=== PATIENT | female | born 1970 | race Caucasian/White ===

== ENCOUNTER 2018-09-18 16:26 | Emergency (ER) | payer OTHER ==
[~2018-09-18] VITALS: Ht 160 cm; Wt 62.6 kg
[2018-09-18 16:28] VITALS: Ht 160 cm; Wt 62.6 kg
[2018-09-18 17:57] VITALS: BP 135/70
== END 2018-09-18 17:57 | disposition home or self-care (01) ==
LOC: ED 16:26
DX: H10.13 Acute atopic conjunctivitis, bilateral (principal)
CPT/HCPCS: J1885; J7512

== ENCOUNTER 2019-01-08 22:25 | Emergency (ER) | payer OTHER ==
[~2019-01-08] VITALS: Ht 160 cm; Wt 58.5 kg
[2019-01-08 22:50] VITALS: Ht 160 cm; Wt 58.5 kg
[2019-01-08 23:27] LABS: BASOPHIL % 0.7 % (0-2); PLATELET COUNT 231 x10^3mcL (130-400); RED CELL DISTRIBUTION WIDTH 13.5 % (11.5-14.5)
[2019-01-08 23:41] LABS: CALCIUM 9.7 mg/dL (8.5-10.1); CARBON DIOXIDE 27.1 mmol/L (21-32); CHLORIDE SERUM 106 mmol/L (98-107); CREATININE SERUM 0.7 mg/dL (0.6-1.0); GFR1 > 60 mL/min; GLUCOSE SERUM 92 mg/dL (74-106); POTASSIUM SERUM 3.9 mmol/L (3.5-5.1); SODIUM SERUM 145 mmol/L (136-145)
[2019-01-08 23:46] LABS: ALBUMIN 3.8 g/dL (3.4-5.0); ALKALINE PHOSPHATASE 43 U/L (46-116); ALT/SGPT 22 U/L (14-59); AST/SGOT 15 U/L (15-37); BILIRUBIN TOTAL 0.48 mg/dL (0.20-1.00); LIPASE 178 IU/L (73-393); TOTAL PROTEIN, SERUM 7.5 g/dL (6.4-8.2)
[2019-01-09 00:55] VITALS: BP 98/67
== END 2019-01-09 00:55 | disposition home or self-care (01) ==
LOC: ED 22:25
PROVIDERS: Emergency Medicine
DX: K59.00 Constipation, unspecified (principal)
CPT/HCPCS: 36415

== ENCOUNTER 2020-07-04 02:21 | Emergency (ER) | payer OTHER, SELFPAY ==
[~2020-07-04] VITALS: Ht 165.1 cm; Wt 63.5 kg
[2020-07-04 02:23] VITALS: Ht 165.1 cm; Wt 63.5 kg
[2020-07-04 03:42] VITALS: BP 128/77
== END 2020-07-04 03:42 | disposition home or self-care (01) ==
LOC: ED 02:21
DX: F41.9 Anxiety disorder, unspecified (principal); Z20.828 Contact with and (suspected) exposure to other viral communicable diseases; Z98.890 Other specified postprocedural states
CPT/HCPCS: U0003